=== PATIENT | male | born 1950 | race Caucasian/White ===

== ENCOUNTER 2016-11-07 12:06 | Emergency (ER) | payer OTHER ==
[2016-11-07 12:17] VITALS: BP 153/92
[2016-11-07] MEDS ORDERED: Lidocaine/Prilocaine 2.5-2.5% Crm 5 GM Tube TOP ONE (13:00)
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
== END 2016-11-07 13:15 | disposition home or self-care (01) ==
LOC: JP.ED 12:06
DX: L55.9 Sunburn, unspecified (principal); J34.0 Abscess, furuncle and carbuncle of nose; I25.2 Old myocardial infarction; I10 Essential (primary) hypertension; Z79.01 Long term (current) use of anticoagulants; Z79.899 Other long term (current) drug therapy; Z79.82 Long term (current) use of aspirin
CPT/HCPCS: 99283; A9270

== ENCOUNTER 2017-01-09 17:11 | Emergency (ER) | payer OTHER ==
[2017-01-09 17:39] VITALS: BP 157/88
--- NOTE | 2017-01-09 17:56 | EDM.PDOC ---
ED HPI GENERAL MEDICAL PROBLEM - General Chief Complaint: Back Pain or Injury Stated Complaint: PAIN IN NECK,BACK AND DOWN LEFT ARM Time Seen by Provider: 01/09/17 17:56 Source of Information: Reports: Patient History Limitations: Reports: No Limitations - History of Present Illness INITIAL COMMENTS - FREE TEXT/NARRATIVE: 66-year-old male with persistent left-sided neck pain, and a deep neuropathic pain radiating into the left shoulder and left arm for the past 3 weeks. It is nontraumatic, he woke up with the pain one morning. The pain seems better in the morning but worsens of this day goes on, becoming very painful in the evening and at night. He has no paresthesias of the arm or weakness, but a very deep pain that runs through the posterior shoulder, lateral arm and into the forearm. There is no specific range of motion that seems to make it worse. He does experience some pulling when turning his head to the right. He has a remote history of a "broken neck" from a football injury when he was young. He has been to the chiropractor twice and it hurts worse after treatments. Onset: Sudden (Woke up with pain 3 weeks ago) Location: Reports: Neck, Upper Extremity, Left Quality: Reports: Ache, Burning Severity: Moderate Associated Symptoms: Reports: No Other Symptoms Back Pain Score (Numeric/FACES): 8 - Related Data Allergies Allergy/AdvReac Type Severity Reaction Status Date / Time No Known Allergies Allergy Verified 11/23/14 13:19 Home Meds: Home Meds Aspirin [Primo Chewable Aspirin] 162 mg PO DAILY 11/11/13 [History] HCTZ/Triamterene [Dyazide 25-37.5 MG] 1 cap PO DAILY 11/11/13 [History] Lansoprazole [Prevacid] 30 mg PO DAILY 11/11/13 [History] Zolpidem [Ambien CR] 5 mg PO BEDTIME PRN 11/11/13 [History] Clopidogrel Bisulfate [Clopidogrel] 75 mg PO DAILY 08/30/14 [History] Fluticasone Propionate [Flonase] 2 sprays FLAVIO DAILY 01/13/15 [History] Mometasone Furoate [Nasonex] 2 sprays FLAVIO DAILY 01/13/15 [History] Nebivolol [Bystolic] 5 mg PO BID 01/13/15 [History] Nitroglycerin [Nitrostat] 0.4 mg SL ASDIRECTED PRN 01/13/15 [History] atorvaSTATin [Lipitor] 80 mg PO BEDTIME 01/13/15 [History] Acetaminophen [Acetaminophen Extra Strength] 1,300 mg PO TID PRN 03/10/15 [ History] Ezetimibe [Zetia] 10 mg PO DAILY 03/10/15 [History] Past Medical History Cardiovascular History: Reports: Hypertension, [place] Other Musculoskeletal History: Back surgery, laminectomy - Infectious Disease History Infectious Disease History: Reports: Chicken Pox, Measles, Mumps Social & Family History - Tobacco Use Smoking Status *Q: Never Smoker Second Hand Smoke Exposure: No - Caffeine Use Caffeine Use: Reports: Coffee - Alcohol Use Days Per Week of Alcohol Use: 1 Number of Drinks Per Day: 2 Total Drinks Per Week: 2 - Recreational Drug Use Recreational Drug Use: No ED ROS GENERAL - Review of Systems Review Of Systems: See Below Constitutional: Denies: Fever, Chills Respiratory: Denies: Shortness of Breath Cardiovascular: Denies: Chest Pain GI/Abdominal: Denies: Abdominal Pain, Nausea, Vomiting Skin: Reports: No Symptoms Neurological: Denies: Paresthesia, Weakness Psychiatric: Reports: No Symptoms ED EXAM, UPPER BACK/NECK PAIN - Physical Exam Exam: See Below Exam Limited By: No Limitations General Appearance: Alert, No Apparent Distress Eye Exam: Bilateral Eye: EOMI Head Exam: Atraumatic Neck Exam: Tender Lateral (Patient has marked tenderness to palpation along the left paraspinous area from C4-C6, also tender into the left upper rhomboid muscle. I could not find weakness or paresthesias of the left upper extremity.) . No: Stiff Neck Cardiovascular/Respiratory: Regular Rate, Rhythm, Normal Breath Sounds Neurologic: No Motor/Sensory Deficits, Oriented x 3 Psychiatric: Normal Affect, Normal Mood Skin Exam: Normal Color, Warm/Dry Course - Vital Signs Last Recorded V/S: Last Vital Signs Temp 97.3 F 01/09/17 17:39 Pulse 69 01/09/17 17:39 Resp 18 01/09/17 17:39 BP 157/88 H 01/09/17 17:39 Pulse Ox 97 01/09/17 17:39 - Orders/Labs/Meds Orders: Active Orders 24 hr Category Date Time Status Cervical Spine Min 4V [CR] Stat Exams 01/09/17 18:03 Taken - Re-Assessments/Exams Free Text/Narrative Re-Assessment/Exam: 01/09/17 18:51 A cervical x-ray was obtained and shows arthritic changes and narrowing C4 and C5. The left foramen looks smaller and possibly compromise. I'm going to place the patient on 60 mg of prednisone for 5 consecutive days, he was given 20 oxycodone to use for pain control and he is scheduled for an MRI of the cervical spine at 2 PM on Monday. I discussed this with his primary care provider Dr. Barraza who will get the results of the MRI and arrange follow-up. Departure - Departure Time of Disposition: 19:13 Disposition: Home, Self-Care 01 Condition: Good Clinical Impression: Neck pain on left side, Neuropathy, cervical (radicular) - Discharge Information Instructions: Neuropathic Pain Referrals: Guanakito Barraza MD [Primary Care Provider] - Forms: ED Department Discharge Care Plan Goals: Take 6 pills are prednisone with food for 5 consecutive days. Use oxycodone as prescribed for pain control, and re-return for your MRI of her cervical spine at 2 PM on Monday as scheduled. Follow up with Dr. Barraza 2-3 days after the MRI and after the prednisone therapy. - My Orders Last 24 Hours: My Active Orders 01/09/17 18:03 Cervical Spine Min 4V [CR] Stat - Assessment/Plan Last 24 Hours: My Active Orders 01/09/17 18:03 Cervical Spine Min 4V [CR] Stat
--- NOTE | 2017-01-10 09:05 | CR ---
Cervical Spine Min 4V HISTORY: Pain COMPARISON: None FINDINGS: Moderate loss of disc space C3-C4 with anterior osteophyte formation. The C1-C2 relationshi p appears normal. No anterior soft tissue prominence. No fracture or subluxation. There is mild juan inal narrowing at C3-C4 and C4-C5 from uncinate spurring on the left. Mild narrowing of the right for janice at C4-C5 and C5-C6 from uncinate spurring. Impression: Degenerative change. No acute fracture.
== END 2017-01-09 19:13 | disposition home or self-care (01) ==
LOC: JP.ED 17:11
DX: M54.12 Radiculopathy, cervical region (principal); I10 Essential (primary) hypertension; I25.2 Old myocardial infarction; Z79.82 Long term (current) use of aspirin; Z79.899 Other long term (current) drug therapy
CPT/HCPCS: 72050; 72050-26; 99284

== ENCOUNTER 2020-09-30 21:56 | Emergency (ER) | payer MEDICARE, OTHER ==
[2020-09-30] MEDS ORDERED: Sodium Chloride 0.9% 10 ML Syringe FLUSH PRN (22:47)
[2020-09-30] MEDS ORDERED: Sodium Chloride 0.9% 1,000 ML IV SCH (23:00)
--- NOTE | 2020-09-30 23:04 | EDM.PDOC ---
ED HPI GENERAL MEDICAL PROBLEM - General Chief Complaint: Cardiovascular Problem Stated Complaint: DIZZY Time Seen by Provider: 09/30/20 22:47 Source of Information: Reports: Patient History Limitations: Reports: No Limitations - History of Present Illness INITIAL COMMENTS - FREE TEXT/NARRATIVE: Delroy is a 70-year-old male presenting to the ED for increased dizziness and diaphoresis. Patient was doing his usual routine out on the boat for half hour and then in the garden. He and his spend most of the time outside in the high heat. He does push fluids during the day. Today he was feeling a little lightheaded so his took his blood pressure finding it to be 70/40 with a pulse rate of 40 bpm. She took it shortly after and it had actually dropped a little bit more prompting him to come in. In the ED his pressure is 85/52 with a pulse rate of 76. Patient does have a history for hypertension and is on Benicar and Bystolic. He denies any chest pain, shortness of breath, nausea or vomiting, headache, or head trauma. He is unsure if perhaps he may have inadvertently doubled his dose of the medication today. - Related Data Allergies Allergy/AdvReac Type Severity Reaction Status Date / Time No Known Allergies Allergy Verified 09/30/20 22:22 Home Meds: Home Meds Aspirin [Primo Chewable Aspirin] 81 mg PO DAILY 11/11/13 [History] Lansoprazole [Prevacid] 30 mg PO DAILY 11/11/13 [History] Zolpidem [Ambien CR] 5 mg PO BEDTIME PRN 11/11/13 [History] Clopidogrel Bisulfate [Clopidogrel] 75 mg PO DAILY 08/30/14 [History] Nebivolol [Bystolic] 5 mg PO BID 01/13/15 [History] Nitroglycerin [Nitrostat] 0.4 mg SL ASDIRECTED PRN 01/13/15 [History] Acetaminophen [Acetaminophen Extra Strength] 1,000 mg PO TID PRN 03/10/15 [History] Ezetimibe [Zetia] 10 mg PO DAILY 03/10/15 [History] Fenofibric Acid (Choline) [Fenofibric Acid] 135 mg PO DAILY 09/30/20 [History] Furosemide 15 mg PO DAILY 09/30/20 [History] Hydroxychloroquine [Plaquenil] 200 mg PO DAILY 09/30/20 [History] Olmesartan Medoxomil [Benicar] 40 mg PO DAILY 09/30/20 [History] Pitavastatin Calcium [Livalo] 4 mg PO DAILY 09/30/20 [History] Past Medical History HEENT History: Reports: None Cardiovascular History: Reports: High Cholesterol, Hypertension, [place] Respiratory History: Reports: None Gastrointestinal History: Reports: None Genitourinary History: Reports: None Musculoskeletal History: Reports: Osteoarthritis Other Musculoskeletal History: Back surgery, laminectomy Neurological History: Reports: None Psychiatric History: Reports: None Endocrine/Metabolic History: Reports: None Hematologic History: Reports: None Immunologic History: Reports: None Oncologic (Cancer) History: Reports: None Dermatologic History: Reports: Eczema - Infectious Disease History Infectious Disease History: Reports: Chicken Pox, Measles, Mumps - Past Surgical History HEENT Surgical History: Reports: None Cardiovascular Surgical History: Reports: Coronary Artery Stent, Percutaneous Transluminal Angioplasty Social & Family History - Tobacco Use Tobacco Use Status *Q: Never Tobacco User - Caffeine Use Caffeine Use: Reports: Coffee - Recreational Drug Use Recreational Drug Use: No ED ROS GENERAL - Review of Systems Review Of Systems: See Below Constitutional: Reports: Diaphoresis HEENT: Reports: No Symptoms Respiratory: Reports: No Symptoms Cardiovascular: Reports: Blood Pressure Problem (Profound hypotension with bradycardia) Endocrine: Reports: No Symptoms GI/Abdominal: Reports: No Symptoms : Reports: No Symptoms Musculoskeletal: Reports: No Symptoms Skin: Reports: Other (Diaphoresis) Neurological: Reports: Dizziness, Weakness (Generalized) Psychiatric: Reports: No Symptoms Hematologic/Lymphatic: Reports: No Symptoms Immunologic: Reports: No Symptoms ED EXAM, GENERAL - Physical Exam Exam: See Below Exam Limited By: No Limitations General Appearance: Alert, No Apparent Distress Eye Exam: Bilateral Eye: EOMI, PERRL Throat/Mouth: Normal Inspection, Normal Oropharynx, Normal Voice, No Airway Compromise Head: Atraumatic, Normocephalic Neck: Normal Inspection, Supple, Non-Tender, Full Range of Motion Respiratory/Chest: No Respiratory Distress, Lungs Clear, Normal Breath Sounds Cardiovascular: Normal Peripheral Pulses, Regular Rate, Rhythm, No Edema, No Murmur Peripheral Pulses: 2+: Radial (L), Radial (R), Posterior Tibial (L), Posterior Tibial (R) GI/Abdominal: Normal Bowel Sounds, Soft, Non-Tender Extremities: Normal Inspection, Normal Range of Motion Neurological: Alert, Oriented, CN II-XII Intact, Normal Cognition, No Motor/Sensory Deficits Psychiatric: Normal Affect, Normal Mood Skin Exam: Warm, Dry, Intact, Normal Color (Patient is extremely tanned) Lymphatic: No Adenopathy #1 Interpretation EKG Date: 09/30/20 Time: 23:15 Rhythm: NSR Rate (Beats/Min): 71 Commodore: LAD-Left Commodore Deviation P-Wave: Present QRS: Normal (Nonspecific interventricular conduction delay) ST-T: Other (Flattened T waves in the inferior and lateral leads) QT: Normal Comparison: Change From Previous EKG (Nonspecific ST-T changes unchanged from previous EKG on 11/11/2013.) Course - Vital Signs Last Recorded V/S: Last Vital Signs Temp 36.4 C 09/30/20 22:16 Pulse 74 10/01/20 00:31 Resp 16 09/30/20 23:42 BP 98/56 L 10/01/20 00:31 Pulse Ox 95 09/30/20 23:42 Orthostatic Blood Pressure [ 92/53 Standing] Orthostatic Blood Pressure [ 99/55 Sitting] Orthostatic Blood Pressure [ 94/52 Supine] - Orders/Labs/Meds Orders: Active Orders 24 hr Category Date Time Status EKG Documentation Completion [RC] ASDIRECTED Care 09/30/20 22:48 Active Sodium Chloride 0.9% [Normal Saline] 1,000 ml Med 09/30/20 23:00 Active IV ASDIRECTED Sodium Chloride 0.9% [Saline Flush] Med 09/30/20 22:47 Active 10 ml FLUSH ASDIRECTED PRN Saline Lock Insert [OM.PC] Routine Oth 09/30/20 22:47 Ordered EKG 12 Lead [EK] Routine Ther 09/30/20 22:47 Ordered Medication Orders Sodium Chloride (Normal Saline) 1,000 mls @ 999 mls/hr IV ASDIRECTED MATA Last Admin: 09/30/20 23:27 Dose: 999 mls/hr Documented by: PREILOR Sodium Chloride (Sodium Chloride 0.9% 10 Ml Syringe) 10 ml FLUSH ASDIRECTED PRN PRN Reason: Keep Vein Open Last Admin: 09/30/20 23:28 Dose: 10 ml Documented by: PREILOR Labs: Laboratory Tests 09/30/20 09/30/20 Range/Units 23:08 23:08 WBC 4.8 (4.5-11.0) K/uL RBC 4.24 L (4.30-5.90) M/uL Hgb 13.2 (12.0-15.0) g/dL Hct 39.4 L (40.0-54.0) % MCV 93 (80-98) fL MCH 31 (27-31) pg MCHC 34 (32-36) % Plt Count 195 (150-400) K/uL Neut % (Auto) 71.5 H (36-66) % Lymph % (Auto) 14.0 L (24-44) % Lamar % (Auto) 13.0 H (2-6) % Eos % (Auto) 1.3 L (2-4) % Baso % (Auto) 0.2 (0-1) % Sodium 141 (140-148) mmol/L Potassium 4.3 (3.6-5.2) mmol/L Chloride 104 (100-108) mmol/L Carbon Dioxide 24 (21-32) mmol/L Anion Gap 13.0 (5.0-14.0) mmol/L BUN 43 H D (7-18) mg/dL Creatinine 3.0 H D (0.8-1.3) mg/dL Est Cr Clr Drug Dosing 27.38 mL/min Estimated GFR (MDRD) 21 L (>60) Glucose 127 H (74-106) mg/dL Calcium 9.1 (8.5-10.1) mg/dL Total Bilirubin 0.5 D (0.2-1.0) mg/dL AST 26 (15-37) U/L ALT 40 (12-78) U/L Alkaline Phosphatase 54 (46-116) U/L Troponin I < 0.017 (0.000-0.056) ng/mL NT-Pro-B Natriuret Pep 127 H (5-125) pg/mL Total Protein 6.5 (6.4-8.2) g/dL Albumin 3.9 (3.4-5.0) g/dL Globulin 2.6 (2.3-3.5) g/dL Albumin/Globulin Ratio 1.5 (1.2-2.2) Meds: Medications Generic Name Dose Route Start Last Admin Trade Name Freq PRN Reason Stop Dose Admin Sodium Chloride 1,000 mls @ 999 mls/hr 09/30/20 23:00 09/30/20 23:27 Normal Saline IV 999 mls/hr ASDIRECTED MATA Administration Sodium Chloride 10 ml 09/30/20 22:47 09/30/20 23:28 Sodium Chloride 0.9% 10 Ml Syringe FLUSH 10 ml ASDIRECTED PRN Administration Keep Vein Open - Re-Assessments/Exams Free Text/Narrative Re-Assessment/Exam: 10/01/20 01:30 I reviewed the patient's EKG and labs. His CBC is unremarkable with a leukocyte count of 4.8, hemoglobin of 13.2, hematocrit of 39.4, and a platelet count of 195,000. His comprehensive metabolic panel is significant for a sodium of 141, potassium 4.3, chloride of 104, bicarbonate of 24, BUN of 43 with a creatinine of 3.0. The patient's previous creatinine done at the [facility] on 02/26/2020 was 1.57. He is on several diuretics which may be contributing to this elevation in his creatinine and if it can drop in his GFR from 44 in February 2020 to 21 today. I recommend that the patient hydrate over the next couple of days and contact either his sales and production manager or Dr. Barraza to review his medications as he would likely need to go down on his torsemide which was recently increased from 10 mg to 20 mg. Adding combination with some mild dehydration is likely resulted in the acute kidney injury. Overall, the patient is doing better after receiving a liter of IV normal saline. He is no longer tachycardic or hypotensive. At this time I believe he suitable for discharge home. Indications to return to the ED were discussed. I did recommend he drop his torsemide back to 10 mg until he talks to his sales and production manager and/or Dr. Barraza. Departure - Departure Time of Disposition: 01:24 Disposition: Home, Self-Care 01 Clinical Impression: Hypotension due to hypovolemia, Bradycardia, Dehydration Acute kidney failure Qualifiers: Acute renal failure type: unspecified Qualified Code(s): N17.9 - Acute kidney failure, unspecified Instructions: Acute Kidney Injury, Adult, Hypotension, [id number], Dehydration, Adult, [id number] Referrals: Guanakito Barraza MD [Primary Care Provider] - Forms: ED Department Discharge Care Plan Goals: Your work-up today shows that you likely had significant dehydration due to your diuretic use. Unfortunately it is also caused injury to your kidney with your creatinine jumping to 3.0 and your BUN jumping to 43. Your previous creatinine level was done on 02/26/2020 and at that time it was 1.57 and on 10/04/2018 it was 1.3. This shows acute worsening of your kidney function with your GFR dropping from 44 which is impaired at stage IIIa to which is impaired at stage IV kidney disease. I would recommend talking to either Dr. Barraza or your card iologist in [place] to discuss the dosing of your diuretics given the injury to the kidney. Over the next several days, I would like you to hydrate with water. You will likely need to have a recheck of your kidney function in several days so it is imperative that you contact Dr. Barraza today so that that can be arranged. Sepsis Event Note (ED) - Evaluation Sepsis Screening Result: No Definite Risk - Focused Exam Vital Signs: Vital Signs Temp Pulse Resp BP Pulse Ox 10/01/20 00:31 74 98/56 L 09/30/20 23:42 76 16 91/52 L 95 09/30/20 22:35 76 16 85/52 L 95 09/30/20 22:16 36.4 C 74 16 89/50 L 96 - Problem List & Annotations (1) Acute kidney failure SNOMED Code(s): 05026331 Code(s): N17.9 - ACUTE KIDNEY FAILURE, UNSPECIFIED Status: Acute Priority: High Current Visit: Yes Qualifiers: Acute renal failure type: unspecified Qualified Code(s): N17.9 - Acute kidney failure, unspecified (2) Bradycardia SNOMED Code(s): 03053438 Code(s): R00.1 - BRADYCARDIA, UNSPECIFIED Status: Acute Priority: High Current Visit: Yes (3) Dehydration SNOMED Code(s): 54516587 Code(s): E86.0 - DEHYDRATION Status: Acute Priority: High Current Vi sit: Yes (4) Hypotension due to hypovolemia SNOMED Code(s): 53048868 Code(s): I95.89 - OTHER HYPOTENSION; E86.1 - HYPOVOLEMIA Status: Acute Priority: High Current Visit: Yes - Problem List Review Problem List Initiated/Reviewed/Updated: Yes - My Orders Last 24 Hours: My Active Orders 09/30/20 22:47 Sodium Chloride 0.9% [Saline Flush] 10 ml FLUSH ASDIRECTED PRN Saline Lock Insert [OM.PC] Routine EKG 12 Lead [EK] Routine 09/30/20 22:48 EKG Documentation Completion [RC] ASDIRECTED 09/30/20 23:00 Sodium Chloride 0.9% [Normal Saline] 1,000 ml IV ASDIRECTED - Assessment/Plan Last 24 Hours: My Active Orders 09/30/20 22:47 Sodium Chloride 0.9% [Saline Flush] 10 ml FLUSH ASDIRECTED PRN Saline Lock Insert [OM.PC] Routine EKG 12 Lead [EK] Routine 09/30/20 22:48 EKG Documentation Completion [RC] ASDIRECTED 09/30/20 23:00 Sodium Chloride 0.9% [Normal Saline] 1,000 ml IV ASDIRECTED
[2020-10-01 00:31] VITALS: BP 98/56; PULSE 74
== END 2020-10-01 01:52 | disposition home or self-care (01) ==
LOC: JP.ED 21:56
DX: E86.0 Dehydration (principal); I95.9 Hypotension, unspecified; E86.1 Hypovolemia; R00.1 Bradycardia, unspecified; N17.9 Acute kidney failure, unspecified; E78.00 Pure hypercholesterolemia, unspecified; I10 Essential (primary) hypertension; I25.2 Old myocardial infarction; M19.90 Unspecified osteoarthritis, unspecified site; Z79.82 Long term (current) use of aspirin; Z79.02 Long term (current) use of antithrombotics/antiplatelets; Z79.899 Other long term (current) drug therapy
CPT/HCPCS: 36415; 80053; 83880; 84484; 85025; 93005; 93010; 99284; 99285; J7030